=== PATIENT | male | born 1960 | race Caucasian/White ===

== ENCOUNTER 2024-10-07 14:30 | Emergency (ER) | payer MEDICARE, MEDICAID, SELFPAY ==
[2024-10-07 14:44] VITALS: BP 114/82; PULSE 82; RESP 20; TEMP 36.6; O2SAT 95
--- NOTE | 2024-10-07 14:48 | XR_ITS ---
Examination: Forearm, left, 2 views. Technique: Forearm, AP, lateral 2 views Date and time of exam: October 07, 2024 1505 hours INDICATIONS: Dog bite to the forearm today FINDINGS: Air densities in the soft tissue on the ulnar side of the forearm No opaque foreign bodies No fracture IMPRESSION: No opaque foreign bodies
[2024-10-07] MEDS: KETOROLAC INJ 60 MG/2 ML VIAL 30 MG IM (15:49)
[2024-10-07] MEDS: DIPHTH,PERTUSS(ACELL),TET VAC 0.5 ML SYR- ADULT IMi (15:49)
--- NOTE | 2024-10-07 15:55 | EDNOTE_ITS ---
ED Animal Bite RME/HPI General Chief Complaint: Animal Bite Stated Complaint: Dog bite to left arm today Time Seen by Provider: 10/07/24 14:34 Arrival date/time: 10/07/24 14:30 This is a case of 63-year-old male who came in in the emergency room due to multiple laceration on the left forearm patient states that he was trying to release his 2 dogs for fighting and accidentally bitten by his dog and sustained a multiple laceration in the left forearm patient states that both of his dog has up-to-date rabies vaccine and he but his tetanus shot is not up-to-date Limitations: no limitations Related Data Previous Rx's ?Medication ?Instructions ?Recorded amoxicillin 875 mg-potassium 1 tab PO BID 10 days #20 tabs 10/07/24 clavulanate 125 mg tablet mupirocin 2 % topical ointment 1 applic topical BID #2 2 grams 10/07/24 Allergies Allergy/AdvReac Type Severity Reaction Status Date / Time codeine Allergy Verified 10/07/24 14:33 Review of Systems Review of Systems Systems Reviewed: All systems reviewed, normal except as documented Constitutional Constitutional: Reports system reviewed and no additional complaints, except as documented Cardiovascular Cardiovascular: Reports system reviewed and no additional complaints, except as documented Respiratory Respiratory: Reports system reviewed and no additional complaints, except as documented Gastrointestinal Gastrointestinal: Reports system reviewed and no additional complaints, except as documented Musculoskeletal Musculoskeletal: Reports other (Forearm injury) Integumentary/Breasts Skin/Breast: Reports other (Laceration) Neurologic Neurologic: Reports system reviewed and no additional complaints, except as documented Past Medical History Past Medical History CARDIAC: Negative Cardiac Disorders or Congestive Heart Failure RESPIRATORY: Negative Chronic Obstructive Pulmonary Disease (COPD) GASTROINTESTINAL: Positive Gastrointestinal Disorders and Gall Bladder Disease GENITOURINARY: Positive Genitourinary Disorders, Kidney Stones and Prostate Cancer; Negative Renal Disease MUSCULOSKELETAL: Positive Musculoskeletal Disorders and Arthritis ENDOCRINE: Negative Endocrine Disorders, Diabetes Mellitus Type 1 or Diabetes Mellitus Type 2 OTHER HISTORY: Positive Prostate Cancer Surgical History SURGICAL: Positive Nose Surgery and Abdominal Surgery Social History SMOKING STATUS: Former smoker ED Exam General Limitations: Present no limitations General appearance: Present alert and in no apparent distress Head Head exam: Present atraumatic, normocephalic and normal inspection Eye Eye exam: Present normal appearance, PERRL and EOMI ENT ENT exam: Present normal exam, normal oropharynx and mucous membranes moist Neck Neck exam: Present normal inspection, full ROM and trachea midline; Absent t enderness, meningismus, lymphadenopathy or thyromegaly Chest Chest inspection: Present normal inspection and symmetric chest wall rise; Absent tenderness, rash or abscess Respiratory Respiratory exam: Present normal lung sounds bilaterally; Absent respiratory distress, wheezes, stridor, accessory muscle use or prolonged expiratory phase Cardiovascular Cardiovascular exam: Present regular rate, normal rhythm and normal heart sounds; Absent bradycardia, tachycardia, irregular rhythm, systolic murmur or diastolic murmur Abdominal Exam Abdominal exam: Present soft and normal bowel sounds Extremities Exam Extremities exam: Present normal inspection, full ROM and other Expanded Upper Extremity Exam Forearm/Wrist exam: Present full ROM and tenderness (Mild tenderness on the left forearm no swelling patient sustained for superficial laceration on the left forearm approximately 1 cm each minimal bleeding no tendon no bone no muscle injury no foreign body ROM intact pulses were full and equal capillary refill less than 2 seconds); Absent dislocation or erythema Back Exam Back exam: Present normal inspection and full ROM Neurological Exam Neurological exam: Present alert, oriented X3, CN II-XII intact, normal gait and reflexes normal; Absent motor sensory deficit Psychiatric Psychiatric exam: Present normal affect and normal mood Skin Skin exam: Present warm, dry, intact, normal color and other (Multiple forearm laceration) Course Quality Measures none Orders Category Date Time Status XR forearm LT 2V Stat Exams 10/07/24 14:48 Completed Ketorolac Inj [Toradol Inj] Med 10/07/24 15:37 Discontinued 30 mg IM X1 ONE TET,DIP/PERT AC (Adult)-Tdap [Boostrix Adult (Tdap) Med 10/07/24 15:37 Discontinued Vacc] 0.5 ml IMI .ONCE ONE Vital Signs Vital signs: Vital Signs Temperature 97.9 F 10/07/24 14:44 Pulse Rate 82 10/07/24 14:44 Respiratory Rate 20 10/07/24 14:44 Blood Pressure 114/82 10/07/24 14:44 Pulse Oximetry (%) 95 10/07/24 14:44 Oxygen Delivery Method Room Air 10/07/24 14:44 Patient is awake alert oriented not in distress nontoxic looking vital signs stable afebrile nontachycardic nontachypneic BP stable not hypoxic oxygen saturation is 95% in room air Procedures -ED Laceration Laceration 1: Site: other (Multiple laceration left forearm for laceration 1 cm each) Side (If applicable): left Size (cm): 4 Description: linear Depth: simple, single layer Local Anesthetic: lidocaine 1% Amount of anesthesia used (mL): 4 Pre-repair: irrigated extensively Skin layer closed with: other (Ginna) Number of sutures: 6 Technique: other (6 ginna) Animal Bite MDM Narrative MDM Narrative:: This is a case of 63-year-old male who came in in the emergency room due to multiple laceration on the left forearm patient states that he was trying to release his 2 dogs for fighting and accidentally bitten by his dog and sustained a multiple laceration in the left forearm patient states that both of his dog has up-to-date rabies vaccine and he but his tetanus shot is not up-to-date patient is awake alert oriented not in distress nontoxic looking x-ray showed no fracture no dislocation patient sustained a 4 superficial laceration 1 cm each no tendon no bone no muscle injury minimal bleeding no foreign body no abscess no cellulitis procedure done via Lyons protocol and via sterile technique applied 6 ginna on the multiple superficial laceration patient tolerated well no complication noted bleeding controlled apply triple antibiotic and covered by gauze and Jimmy bandage patient was given tetanus shot here in the emergency room and Toradol for pain patient will follow-up with PCP in 2 days for evaluation and wound check in 10 days for removal of suture patient was prescribed with Augmentin and mupirocin to prevent infection he will take Tylenol Motrin as needed for pain Patient was discharged with comfortable condition walking with stable gait. Patient verbalized no further complains explained diagnosis and answered patient question. Patient is comfortable with the proposed management plan including the need to follow up with his/her primary care physician and any specialist if applicable Discussed patient for any urgent condition or worsening sx, He/She needed to go to emergency room immediately or call 911. Patient acknowledge the responsibility to follow up as instructed and to monitor her/his symptoms. For any persistence of the symptoms for more than 3-5 days return precaution advised. Discussed the result of the test and was given printed discharge instruction Patient data External records reviewed:: [facility] previous records Clinical information provided by:: patient Social determinants that could affect healthcare access:: none Patient has the following chronic illnesses:: None How is presenting disease/condition affected by chronic disease/condition?: no chronic disease Evaluation data The following diagnostics were reviewed and interpreted by me:: radiology exam(s) Lab and/or radiology exams considered but not ordered:: Reviewed Interpretation Summary: Reviewed Medications / Prescriptions Medications or Prescriptions considered but not ordered:: Given Medication administrations:: Medication Administration History Discontinued Medications Diphtheria/Tetanus/Acell Pertussis (Diphth,Pertuss(Acell),Tet Vac 0.5 Ml Syr- Adult) 0.5 ml IMi .ONCE ONE Stop: 10/07/24 15:38 Last Admin: 10/07/24 15:49 Dose: 0.5 ml Documented By: SHANKAR Ketorolac Tromethamine (Ketorolac Inj 60 Mg/2 Ml Vial) 30 mg IM X1 ONE Stop: 10/07/24 15:38 Last Admin: 10/07/24 15:49 Dose: 30 mg Documented By: SHANKAR Given Consultations Consultation(s) initiated? (list below): No Diagnosis Differential diagnosis animal bite: dog bite Most likely diagnosis given after review of the tests above:: Forearm laceration secondary to dog bite Admission Indicated Admission indicated?: not indicated Explain why admission is indicated or not indicated:: Not indicated Admission Request Was there a request for admission?: No Admission Attestation Admission request attestation: Not indicated Disposition Plan Disposition Plan: Discharge Discharge Attestation Discharge Attestation: The patient and all family members were given an opportunity to ask questions and understood the discharge instructions. Discharge instructions specifically effects, indications for sooner follow up or return to the emergency department, and the expected course of current diagnosis. Patient condition: Stable Discharge Plan Plan Patient Disposition: HOME (Self Care) Patient condition on transfer: Stable Prescriptions/Referrals Prescriptions/Med Rec: New amoxicillin-pot clavulanate 875-125 mg tablet 1 tab PO BID 10 Days Qty: 20 0RF mupirocin 2 % ointment 1 applic topical BID Qty: 22 0RF Problem List Clinical Impression: Laceration of forearm, Dog bite Patient/Caregiver Discharge Instructions Education Materials: Animal Bites and Scratches, ED Dog Bite, ED Laceration: All Closures Additional Instructions: Follow-up with your primary care physician in 2 days for reevaluation and wound check and for removal of suture in 10 days for any redness swelling discharge from the wound pain fever chills worsening symptoms or any emergent concern return to the emergency room immediately or call 911 keep the wound clean and dry take your medication and finish the course of antibiotic Print Language: Gabonese Stand Alone Forms: Felipa Award Info., Patient Portal Info Letter PA/CULINARY ARTS INSTRUCTOR Supervising Physician PA/CULINARY ARTS INSTRUCTOR Supervising Physician: dr souza
== END 2024-10-07 15:51 | disposition home or self-care (01) ==
PROVIDERS: Emergency Provider Emergency Medicine
DX: S51.812A Laceration without foreign body of left forearm, initial encounter (principal); W54.0XXA Bitten by dog, initial encounter; Z23 Encounter for immunization
CPT/HCPCS: 12002; 73090; 90471; 90715; 96372; 99283; J1885

== ENCOUNTER 2025-01-03 17:40 | Emergency (ER) | payer MEDICARE, MEDICAID, SELFPAY ==
[2025-01-03 17:48] VITALS: BP 136/80; PULSE 79; RESP 16; TEMP 37; O2SAT 97
--- NOTE | 2025-01-03 17:57 | EDRME_ITS ---
Rapid Medical Screening Exam [facility] Arrival date/time: 01/03/25 17:40 64-year-old male with no known medical history presents to the emergency room with a chief complaint of a foreign body in his right eye. 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 I have greeted and performed a focused initial assessment of this patient. A comprehensive ED assessment and evaluation of the patient, analysis of all test results, and completion of the medical decision making process will be conducted by additional ED providers. Chief Complaint: Eye Problems Vital signs: Vital Signs Temperature 98.6 F 01/03/25 17:48 Pulse Rate 79 01/03/25 17:48 Respiratory Rate 16 01/03/25 17:48 Blood Pressure 136/80 H 01/03/25 17:48 Pulse Oximetry (%) 97 01/03/25 17:48 Oxygen Delivery Method Room Air 01/03/25 17:48 Vital signs reviewed by provider: Yes
[2025-01-03] MEDS: TETRACAINE PF OP SOL 0.5% 4 ML DRPETTE 1 DROP LEFT EYE (18:25)
[2025-01-03] MEDS: FLUORESCEIN SOD 1 MG STRP LEFT EYE (18:25)
--- NOTE | 2025-01-03 20:37 | PD.EDADULT ---
ED General RME/HPI General Chief complaint: Eye Problems Stated complaint: METAL IN R) EYE Time Seen by Provider: 01/03/25 18:00 Arrival date/time: 01/03/25 17:40 CC: Foreign body sensation in the right eye HPI patient was grinding had both glasses and a shield on and despite felt it immediately. Onset approximately 4 hours ago patient denies any new blurred vision or seeing spots. Localized discomfort patient states he flushed his eye extensively with fluids at home but still has a foreign body sensation. Patient has no other complaints localized pain 1-2 out of 10 scale. RME / HPI RME / HPI narrative: 01/03/25 17:40 64-year-old male with no known medical history presents to the emergency room with a chief complaint of a foreign body in his right eye. 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 I have greeted and performed a focused initial assessment of this patient. A comprehensive ED assessment and evaluation of the patient, analysis of all test results, and completion of the medical decision making process will be conducted by additional ED providers. Related Data Previous Rx's ?Medication ?Instructions ?Recorded mupirocin 2 % topical ointment 1 applic topical BID #22 grams 10/07/24 tobramycin 0.3 % eye drops 1 drp ophthalmic (eye) Q4H #5 mL 01/03/25 Allergies Allergy/AdvReac Type Severity Reaction Status Date / Time codeine Allergy Severe Hives Verified 01/03/25 17:44 Review of Systems Review of Systems Narrative Review of Systems: GEN: No fever, no chills, no weight loss EYES: No discharge, no visual changes, no pain HEENT: No ear pain, no congestion, no sore throat,+ foreign body sensation in right eye PULM: No shortness of breath, no cough, no congestion CV: No chest pain, no dyspnea on exertion, no palpitations GI: No nausea, no vomiting, no diarrhea, no pain, no constipation : No frequency, no urgency, no dysuria MUSC/SKEL: No joint pain, no back pain SKIN: No rash PSYCH: No hallucinations, no depression HEME/LYMPH: No easy bleeding or bruising tendencies NEURO: No weakness, no headache Past Medical History Past Medical History CARDIAC: Negative Cardiac Disorders or Congestive Heart Failure RESPIRATORY: Negative Chronic Obstructive Pulmonary Disease (COPD) GASTROINTESTINAL: Positive Gastrointestinal Disorders and Gall Bladder Disease GENITOURINARY: Positive Genitourinary Disorders, Kidney Stones and Prostate Cancer; Negative Renal Disease MUSCULOSKELETAL: Positive Musculoskeletal Disorders and Arthritis ENDOCRINE: Negative Endocrine Disorders, Diabetes Mellitus Type 1 or Diabetes Mellitus Type 2 OTHER HISTORY: Positive Prostate Cancer Surgical History SURGICAL: Positive Nose Surgery and Abdominal Surgery Social History SMOKING STATUS: Former smoker ED Exam Narrative Physical exam: [General: Not in any acute distress Head normocephalic HEENT: Eyes pupils are PERRLA EOMs are intact. Under fluorescein right eye no foreign body abrasion or ulceration identified. Left eye is unremarkable. All of the subsystems of HEENT are within acceptable limits Neck is supple nontender Chest equal chest rise nontender to palpation Respiratory: Clear to auscultation no wheezes crackles or rubs CV: Rate rhythm is regular no murmurs rubs or clicks Back: No CVA tenderness no spinous process tenderness from cervical spine thoracic and lumbar spine Skin: Intact no petechiae rash induration ulceration or crepitus Extremities: Moving all extremity against resistance cap refill less than 2 seconds neurosensory intact Neuro: Awake alert oriented x3 Glascow coma 15 no focal deficits] Course Course Course Narrative: Right eye was flushed with 250 cc of normal saline, eye was reexamined under fluorescein dye and no identifiable foreign body. Minor abrasion to the sclera at the 12 o'clock position above the lens. No other abrasion ulceration or foreign body identified. After 10 minutes patient state he has no further pain or irritation in the right eye will discharge the patient home. Quality Measures none Orders Category Date Time Status ED Eye Irrigation ONCE Care 01/03/25 17:57 Active Visual Acuity X1 Care 01/03/25 17:57 Active [place]anilla Lamp to Bedside X1 Care 01/03/25 17:57 Active Fluorescein Sodium [Bio-Carito] Med 01/03/25 17:57 Discontinued 1 mg LEFT EYE X1 ONE TETRACAINE Op Kimberly 0.5% [Pontocaine Op Kimberly 0.5%] Med 01/03/25 17:57 Discontinued 1 drop LEFT EYE X1 ONE Vital Signs Vital signs: Vital Signs Temperature 98.6 F 01/03/25 17:48 Pulse Rate 79 01/03/25 17:48 Respiratory Rate 16 01/03/25 17:48 Blood Pressure 136/80 H 01/03/25 17:48 Pulse Oximetry (%) 97 01/03/25 17:48 Oxygen Delivery Method Room Air 01/03/25 17:48 Discharge Plan Plan Patient Disposition: HOME (Self Care) Patient condition on transfer: Stable Prescriptions/Referrals Prescriptions/Med Rec: New tobramycin 0.3 % drops 1 drp ophthalmic (eye) Q4H Qty: 5 0RF No Action mupirocin 2 % ointment 1 applic topical BID Qty: 22 0RF Referrals: Srini Mayers MD [Referring Provider, Opthalmology] - In 1 week No Primary/Family,Physician [Primary Care Provider] - In 1 week Problem List Clinical Impression: Eye foreign bodies Patient/Caregiver Discharge Instructions Additional Instructions: Use the drops as prescribed, follow-up with the lost charge card clerk listed above if there is worsening of symptoms return the emergency room for reevaluation. Print Language: Tajik Stand Alone Forms: Felipa Award Info., Patient Portal Info Letter, Work/School Release PA/RECORDS ANALYSIS MANAGER Supervising Physician PA/RECORDS ANALYSIS MANAGER Supervising Physician: Delmer Baron ENP MDM Medication Administration(s) Medication Administration History Discontinued Medications Fluorescein Sodium (Fluorescein Sod 1 Mg Strp) 1 mg LEFT EYE X1 ONE Stop: 01/03/25 17:58 Last Admin: 01/03/25 18:25 Dose: 1 mg Documented By: SHANKAR Tetracaine HCl (Tetracaine Pf Op Kimberly 0.5% 4 Ml Drpette) 1 drop LEFT EYE X1 ONE Stop: 01/03/25 17:58 Last Admin: 01/03/25 18:25 Dose: 1 drop Documented By: SHANKAR
== END 2025-01-03 21:15 | disposition home or self-care (01) ==
PROVIDERS: Emergency Provider Emergency Medicine
DX: T15.91XA Foreign body on external eye, part unspecified, right eye, initial encounter (principal); W44.9XXA Unspecified foreign body entering into or through a natural orifice, initial encounter
CPT/HCPCS: 99284